=== PATIENT | female | born 1995 | race Caucasian/White ===

== ENCOUNTER 2019-03-31 16:51 | Emergency (ER) | payer MEDICAID, OTHER ==
[~2019-03-31] VITALS: Ht 165.1 cm; Wt 65.8 kg
[2019-03-31 16:55] VITALS: BP_SYST 124
[2019-03-31 17:35] VITALS: BP_SYST 118
== END 2019-03-31 17:35 | disposition home or self-care (01) ==
LOC: SED 16:51
DX: J02.8 Acute pharyngitis due to other specified organisms (principal); B97.89 Other viral agents as the cause of diseases classified elsewhere
CPT/HCPCS: 99282